=== PATIENT | female | born 1965 | race Caucasian/White ===

== ENCOUNTER 2024-08-05 15:20 | Outpatient (CLI) | payer OTHER, SELFPAY ==
--- NOTE | 2024-08-05 15:30 | ECG_ITS ---
Test Date: 2024-08-05 15:46:50 Measurements Intervals [place] Rate: 66 P: 70 OK: 133 QRS: 57 QRSD: 89 T: 46 QT: 393 QTc: 413 Interpretive Statements SINUS RHYTHM NORMAL ECG No previous ECG available for comparison Electronically Signed On 08-05-2024 16:13:46 CDT by Jimmie Lopez D.O.
--- OUTSIDE RECORDS SUMMARY | 2024-08-05 16:22 | XMS_ITS | Data Portability ---
Author Organization [facility] SI (11) Address [address] [place] [id number] Care Team Providers Care Showcase Trimmer Name Role Phone MONIQUE LUTHER Referring Provider [phone] Assessment No assessment recorded. Plan of Treatment Reminders Order Date Submit Date Provider Last Modified By Organization Details Last Modified Time Details Appointments None record ed. Lab None record ed. Referral None record ed. Procedures None record ed. Surgeries None record ed. Imaging None record ed. Medication Orders None record ed. Patient TargetsNo targets recorded. Patient InstructionsNo instructions recorded. Reason for Referral None Reported. Procedures Surgical History Date Name Laterality Status Provider Name and Address Organization Details Recorded Time 09/18/2016 Sleep Study completed Byron Reyes MD, F.C.C.P. [address] [place] [address], [place], [address], [facility]/[facility] 09/20/2016 07:59:58 Imaging Results None recorded. Procedure Notes None recorded. Medical Equipment None Reported. Medications Name Sig Start Date Stop Date Status Note LastModified by Organization Details LastModified Time venlafaxine ER 37.5 mg capsule,extende d release 24 hr Take 1 capsule every day by oral route. active Not Available Not Available No t Available venlafaxine ER 75 mg capsule,extende d release 24 hr active Not Available Not Availa ble Not Available venlafaxine 75 mg tablet Take 1 tablet every day by oral route. active Not Available Not Available No t Available azithromycin 250 mg tablet active Not Available Not Availabl e Not Available fluconazole 150 mg tablet active Not Available Not Available No t Available valacyclovir 1 gram tablet active Not Available Not Available Not Available amlodipine 5 mg tablet active Not Available Not Available Not Available diltiazem CD 120 mg capsule,extende d release 24 hr Take 1 capsule every day by oral route. active Not Available Not Available No t Available Longs Adult Low Strength ASA 81 mg tablet,delayed release Take 1 tablet every day by oral route. active Not Available Not Available No t Available hydrochlorothia zide 25 mg tablet active Not Available Not Available Not Available Edarbyclor 40 mg-12.5 mg tablet Take 1 tablet every day by oral route. active Not Available Not Available No t Available Belviq 10 mg tablet active Not Available Not Available Not Available Vitals Date Recorded Body height Body mass index (BMI) Body weight Provider Name and Address Organization Details Last Updated DateTime 09/18/2016 154.94 cm 36.1 kg/m2 41096.14 g [place] [facility] 09/19/2016 17:31:48 Social History None recorded. Functional Status None recorded. Mental Status None recorded. Family History Nothing Reported. Medical History No medical history recorded. Gynecological HistoryNo gynecological history recorded. Obstetrics History GPAL:G 0 P 0 0 0 0 Past Encounters Encounter ID Performer Location Encounter Start Date Encounter Closed Date Diagnosis/Indication Diagnosis SNOMED-CT Code Diagnosis ICD10 Code Diagnosis Note [id number] [facility] [place], [facility] [phone] [place] [address] 09/18/2016 21:42:45 09/19/2016 17:23:19 Obstructive sleep apnea of adult 3778734117 103 G47.33 Health Concerns Section Related Observation LastModified by Organization Detai ls LastModified Time None Recorded Concern Status LastModified by Organization Details LastModified Time None Recorded Advance Directives Directive None Recorded Payers Insurance Date Sequence Insurance Name Policy Number Policy [place] Covered Member ID [place] Member ID Guarantor Name 09/18/2016 1 [place] Kwame Taylor [id number] Shadia Hartry OBGyn Episode No OBEpisode recorded.
--- OUTSIDE RECORDS SUMMARY | 2024-08-05 16:22 | XMS_ITS | Data Portability ---
Author Organization [facility] [employer] , [facility] Address [address] [place] [address] Assessment No assessment recorded. Plan of Treatment Reminders Order Date Submit Date Provider Last Modified By Organization Details Last Modified Time Details Appointments None recorded. Lab HPV E6+E7 mRNA, qualitative PCR, cervix 2022 023 [facility], [address] [place] [address], [address], 3 15:58:00 pap, LB 2022 023 [facility], [address] [place], [address], 3 15:31:59 Referral None recorded. Procedures None recorded. Surgeries None recorded. Imaging MAMMO, screening, digital, bilateral 2022 023 [email or web address] Not available 3 16:33:58 Medication Orders None recorded. Patient TargetsNo targets recorded. Patient Instructions Encounter Date Encounter Id Patient Instructions Last Modified By Organization Details Last Modified Time 03/04/2022 [id number] abuse/domestic violence education Not available 03/04/2022 17:39:13 eating healthy foods: care instructions Not available 03/04/2022 17:39:13 general health care education Not available 03/04/2022 17:39:13 weight managemen t education Not available 03/04/2022 17:39:13 Reason for Referral None Reported. Results Created Date Observation Date Name Description Value Unit Range Abnormal Flag Note LastModifiedBy Organization Detail LastModifiedTime 03/04/19 23 03/07/2022 HPV HIGH RISK HPV high risk Negati ve negati ve normal The HPV High Risk assay is inten ded for use as co-te sting with cytol ogy and not as a subst itute for regul ar cervi javon cytol ogy scree laura. This assay is not inten ded for use as a scree laura devic e for women under age 30 with glendy l cervi javon cytol ogy. Not Available [facility] [address] [place], [address], 03/07/2022 15:58:00 03/04/19 23 03/08/2022 THINP REP TIS PAP clinical information: normal None given Not Available [address], [address], 03/08/2022 15:31:59 03/04/19 23 03/08/2022 THINP REP TIS PAP LMP: normal NONE GIVEN Not Available [address], [address], 03/08/2022 15:31:59 03/04/19 23 03/08/2022 THINP REP TIS PAP prev. Pap: normal NONE GIVEN Not Available [address], [address], 03/08/2022 15:31:59 03/04/19 23 03/08/2022 THINP REP TIS PAP prev. BX: normal NONE GIVEN Not Available [address], [address], 03/08/2022 15:31:59 03/04/19 23 03/08/2022 THINP REP TIS PAP source: normal Cervi x Not Available [address], [address], 03/08/2022 15:31:59 03/04/19 23 03/08/2022 THINP REP TIS PAP statement of adequacy: normal Satis facto ry for evalu ation . Endoc ervic al/tr ansfo rmati on zone compo nent prese nt. Age and/o r menst rual statu s not provi ded Not Available [address] [address] [place], [address], 03/08/2022 15:31:59 03/04/19 23 03/08/2022 THINP REP TIS PAP interpretati on/result: normal Negat shira for intra epith elial lesio n or malig kylie . Not Available [address] [address] [place], [address], 03/08/2022 15:31:59 03/04/19 23 03/08/2022 THINP REP TIS PAP comment: normal This Pap test has been evalu ated with compu ter fernando virgil [employer] ology . Not Available [address] [address] [place], [address], 03/08/2022 15:31:59 03/04/19 23 03/08/2022 THINP REP TIS PAP cytotechnolo gist: normal MDG, CT( CP) CT scree laura locat ion: [address] [address] [place] [address] Not Available [address] [address] [place], [address], 03/08/2022 15:31:59 03/04/19 23 03/08/2022 THINP REP TIS PAP comment EXPLA NATOR Y NOTE: The Pap is a scree laura test for cervi javon cance r. It is not a diagn ostic test and is subje ct to false negat shira and false posit shira resul ts. It is most relia ble when a satis facto ry sampl e, regul oksana obtai tiffanie, is submi tted with relev ant clini javon findi ngs and histo ry, and when the Pap resul t is evalu ated along with histo frances and curre nt clini javon infor matio n. Not Available [address] [address] [place], [address], 03/08/2022 15:31:59 Result Notes None recorded. Problems No Known Problems Procedures Surgical History Date Name Laterality Status Provider Name and Address Organization Details Recorded Time 12/17/19 21 Most Recent Mammogram completed [facility] 03/04/2022 15:23:59 12/17/19 20 Date of Last Pap Smear completed [facility] 03/04/2022 15:23:59 Breast Augmentation completed [facility] 03/04/2022 15:24:16 Breast Reduction completed [facility] 03/04/2022 15:24:16 Endometrial Ablation completed [facility] 03/04/2022 15:24:16 Imaging Results None recorded. Procedure Notes None recorded. Medical Equipment None Reported. Allergies Allergen ID Allergen Name Allergen Category Reaction Reaction Severity Criticality Documentation Date Start Date Code Code System Note Provider Name and Address Organization Details Recorded Time 086387 ciproflox acin medicatio n Not available Not available Not available 03/04/2022 2551 [facility] 15:23:38 Medications Name Sig Start Date Stop Date Status Note LastModified by Organization Details LastModified Time venlafaxine ER 37.5 mg capsule,ext ended release 24 hr TAKE 1 CAPSULE BY MOUTH EVERY DAY EXCEPT DURING MENSTRUL CYCLE TAKE TWICE DAILY 03/04 completed Not Available Not Available Not Available venlafaxine ER 75 mg capsule,ext ended release 24 hr TAKE 1 CAPSULE BY MOUTH EVERY DAY active Not Available Not Available No t Available clindamycin HCl 300 mg capsule TAKE 1 (ONE) CAPSULE THREE TIMES DAILY WITH FOOD 03/04 completed Not Available Not Available Not Available fluconazole 150 mg tablet TAKE 1 (ONE) TABLET ONCE, MAY REPEAT IN 3 DAYS IF SYMPTOMS PERSIST 03/04 completed Not Available Not Available Not Available valacyclovi r 1 gram tablet TAKE 1 TABLET BY MOUTH TWICE A DAY NEEDED active Not Available Not Available No t Available hydrocodone 5 mg-acetamin ophen 325 mg tablet 1 OR 2 TABLETS BY MOUTH EVERY 6 HOURS NEEDED FOR PAIN active Not Available Not Available No t Available prednisone 20 mg tablet TAKE 1 TABLET BY MOUTH TWICE A DAY active Not Available Not Available No t Available valsartan 80 mg tablet TAKE 1 TABLET BY MOUTH EVERY DAY active Not Available Not Available No t Available phentermine 37.5 mg tablet TAKE 1 TABLET BY MOUTH EVERY DAY active Not Available Not Available No t Available amoxicillin 875 mg tablet TAKE 1 TABLET BY MOUTH TWICE A DAY WITH FOOD 03/04 completed Not Available Not Available Not Available prednisolon e acetate 1 % eye drops,suspe nsion INSTILL 1 DROP IN SURGICAL EYE 4 TIMES A DAY active Not Available Not Available No t Available gentamicin 0.3 % eye drops INSTILL 1 DROP IN RIGHT EYE FOUR TIMES A DAY active Not Available Not Available No t Available ergocalcife rol (vitamin D2) 1,250 mcg (50,000 unit) capsule TAKE 1 CAPSULE BY MOUTH ONE TIME PER WEEK active Not Available Not Available No t Available ondansetron 4 mg disintegrat ing tablet DISSOLVE 1 TABLET ON TONGUE EVERY 4 TO 6 HOURS NEEDED FOR NAUSEA active Not Available Not Available No t Available phentermine 37.5 mg capsule TAKE 1 CAPSULE BY MOUTH DAILY 03/04 completed Not Available Not Available Not Available DILT-XR 120 mg capsule, extended release TAKE 1 CAPSULE BY MOUTH EVERY DAY active Not Available Not Available No t Available Trulicity 1.5 mg/0.5 mL subcutaneou s pen injector INJECT 1.5 MG SUBCUTANE OUSLY WEEKLY active Not Available Not Available No t Available Trulicity 0.75 mg/0.5 mL subcutaneou s pen injector INJECT 0.75 MG SUBCUTANE OUSLY WEEKLY 03/04 completed Not Available Not Available Not Available Vitals Date Recorded Body weight Systolic blood pressure Diastolic blood pressure Provider Name and Address Organization Details Last Updated DateTime 03/04/2022 52444.59 g 148 mm[Hg] 84 mm[Hg] Taylor Zhuer [facility] 03/04/2022 15:37:36 Social History Question Answer Notes LastModified by Organizat ion Details LastModified Time Tobacco Smoking Status Never Smoker Taylor Jase antunez [facility] 03/04/2022 15:24:10 How Many Years Have You Consumed Alcohol? 32 [email or web address] Information not available 03/04/2022 What Is Your Relationship Status? [email or web address] Information not available 03/04/2022 Are You Sexually Active? Yes [email or web address] Information not available 03/04/2022 Sex: Unknown Functional Status Question Answer Note LastModified by Organizat ion Details LastModified Time What is your level of alcohol consumption? Occasional [email or web address] Information not available 03/04/2022 Do you or have you ever used e-cigarettes or vape? Never used electronic cigarettes [email or web address] Information not available 03/04/2022 What is your exercise level? Occasional [email or web address] Information not available 03/04/2022 Mental Status None recorded. Family History Relationship Description Onset Age of this Age Resolved Age Notes LastModified by Organization Details LastModified Time Father Hypertensive disorder [email or web address] Not available 03/04 15:23:45 Father Malignant neoplastic disease [email or web address] Not available 03/04 15:23:45 Mother Depressive disorder [email or web address] Not available 03/04 15:23:45 Mother Hypertensive disorder [email or web address] Not available 03/04 15:23:45 Medical History Condition Response High Blood Pressure Y Gynecological History Statement/Question Response Flow Heavy Frequency of Cycle (Q days) 26 Date of LMP 09/04/2009 Date of Last Pap Smear 12/17/2019 Duration of Flow (days) 5 Most Recent Mammogram 12/16/2020 Current Control Method Ablation Age at Menarche 17 Obstetrics History GPAL:G 0 P 0 0 0 0 Past Encounters Encounter ID Performer Location Encounter Start Date Encounter Closed Date Diagnosis/Indication Diagnosis SNOMED-CT Code Diagnosis ICD10 Code Diagnosis Note [id number] Maggie Chaney MD [facility] [address] [place] [address] 03/04/2022 14:59:46 03/09/2022 09:05:00 Gynecologic examination 52568449 Z01.419 56y.o. here for annual exam. - Pap up to date from 2019, discussed natural course of HPV infection, no new exposures. Plan to repeat cotesting in years. - Routine labs done with PCP - Mammo 2020 WNL, discussed different guideline recommenda zack, pt without family hx, would like to proceed with q1yr screening, repeat next year // rx provided - ?stool guaic done, can continue per PCP orders who manages - DEXA at age 67 - BMI counseling , diet and exercise reviewed - RTO for annual or PRN Screening for malignant neoplasm of cervix 264222870 Z12.4 Screening for malignant neoplasm of breast 397549995 Z12.39 Health Concerns Section Related Observation LastModified by Organization Detai ls LastModified Time None Recorded Concern Status LastModified by Organization Details LastModified Time None Recorded Advance Directives Directive None Recorded Payers Insurance Date Sequence Insurance Name Policy Number Policy [place] Covered Member ID [place] Member ID Guarantor Name 03/25/2022 1 [place] Shadia Hartry [id number] Shadia Taylor 03/25/2022 1 [facility] - DOS ON OR AFTER 20 (MEDICAID REPLACEMENT - HMO) Shadia Taylor [id number] Shadia Taylor Notes Date Note Type Note Provider Name a nd Address Organization Details Recorded Time 03/04/2022 text/html Annual GYNReport ed bypatient.Menstrua l cycle:menopausal Urinary symptoms:No hematuria; No incontinence Vulva:No genital lesion Vagina:Normal vaginal discharge Breast:No breast pain; No breast lump Current Contraception:Sati sfied with current contraception; Monogamous relationship Sexual complaints:No sexual complaints Menopausal Symptoms:Hot flashes Psychological symptoms:Depressio n;Anxiety Preventive measures:Encourage self breast examination; Encourage regular exercise; Encourage no tobacco use; Encourage regular mammograms starting age 40; Followed with Q3 year pap smear and high risk HPV typing Didier Chaney MD [address] [facility], [place], [address], [facility] [employer] [facility] 03/04/2022 15:54:03 OBGyn Episode No OBEpisode recorded.
--- OUTSIDE RECORDS SUMMARY | 2024-08-05 16:22 | XMS_ITS | Clinical Summary ---
Author Organization [facility] Address [address] [place] [address] Care Team Providers Care Lubricating Engineer Name Role Phone Li Smith RODNEY Primary Care Provider [phone] Social History Tobacco Use Types Packs/Day Years Used Date Smoking Tobacco: Never Assessed Comments No Sex and Gender Information Value Date Recorded Sex Assigned at Not on file Legal Sex Female 9:10 PM CDT Gender Identity Not on file Sexual Orientation Not on file Last Filed Vital Signs Vital Sign Reading Time Taken Comments Blood Pressure 114/52 04/04/2014 2:37 PM [facility] [employer] [employer] Pulse 85 04/04/2014 2:37 PM [facility] Temperature 36.6 C (97.9 F) 04/04/2014 2:37 PM [facility] Respiratory Rate 18 04/04/2014 2:37 PM [facility] Oxygen Saturation 98% 04/04/2014 2:37 PM [employer] Inhaled Oxygen Concentration - - Weight 86.2 kg (190 lb) 11/05/2020 4:05 PM CDT Height 165.1 cm (5' 5) 11/05/2020 4:05 PM CDT Body Mass Index 31.62 11/05/2020 4:05 PM CDT Plan of Treatment Upcoming Encounters Date Type Department Care Team (Late st Contact Info) Description 09/06/2024 9:15 AM CDT Office Visit [facility] [address] [place] [phone] Eliane Acosta MD [address] [place] [address] [phone] (work) Health Maintenance Due Date Last Done Comments CT Colonography 1967 Colonoscopy 1967 Colorectal Cancer Screening 1967 FIT-DNA 1967 FIT 1967 FOBT 1967 Pap Smear 1967 Sigmoidoscopy 1967 MMR Vaccines (1 of 1 - Standard series) 05/09/1968 Varicella Vaccines (1 of 2 - 13+ 2-dose series) 05/09/1980 Hepatitis B Vaccines (1 of 3 - 19+ 3-dose series) 05/09/1986 DTaP,Tdap,and Td Vaccines (1 - Tdap) 05/09/1988 AMB Pneumococcal 50+ yrs (1 of 1 - PCV) 05/09/2017 Zoster Series Vaccines (1 of 2) 05/09/2017 Mammogram 11/05/2021 11/05/2020, 03/30, 04/25/2016, Additional history exists COVID-19 Vaccine (2023- season) 2023 Influenza Vaccine (Season Ended) 2024 RSV Vaccines and 60 Years or Older (1 - 1-dose 75+ series) 05/09/2042 HIB Vaccines Aged Out No longer eligi ble based on patient's age to complete this topic HPV Vaccines Aged Out No longer eligi ble based on patient's age to complete this topic Hepatitis A Vaccines Aged Out No long er eligible based on patient's age to complete this topic IPV Vaccines Aged Out No longer eligi ble based on patient's age to complete this topic Meningococcal ACWY Vaccine Aged Out N o longer eligible based on patient's age to complete this topic Meningococcal B Vaccine Aged Out No l onger eligible based on patient's age to complete this topic RSV Vaccines <20 Months Aged Out No l onger eligible based on patient's age to complete this topic Medical Devices Implanted Type Area Vehicle Assembler Device Identifier Shelf Expiration Date Model / Serial / Lot Breast Breast Bilateral: Breast Procedures Procedure Name Priority Date/Time Associated Diagnosis Comments BI SCREENING BILATERAL Routine 11/05/2020 4:05 PM CDT Encounter for screening mammogram for malignant neoplasm of breast from Last 3 Months or Most Recently Relevant to Health Maintenance Results * Bilateral digital screening mammogram (11/05/2020 4:05 PM CDT) Anatomical Region Laterality Modality Breast Bilateral Mammography Narrative 11/05/2020 4:16 PM CDT EXAMINATION(S) PERFORMED Patient is seen for Bilateral digital screening mammogram. Study was evaluated with a computer aided detection (CAD) system and performed with 2D/3D mammography. INDICATIONS Shadia Taylor is a 55 y.o. female and is being seen for Encounter for screening mammogram for malignant neoplasm of breast. No known family history of breast cancer. COMPARISON TO PREVIOUS EXAMINATION(S) Compared to: 04/16/2018 Bilateral digital screening mammogram and 04/25/2016 Breast Img screening bilateral FINDINGS The breasts are heterogeneously dense, which may obscure small masses. There is no evidence of suspicious masses, calcifications, or other abnormal findings. The patient has bilateral subpectoral saline breast implants. There has been no interval change. IMPRESSION Right breast assessment: Benign. Left breast assessment: Benign. Routine Screening Mammogram in 1 Yr is recommended for both breasts. Overall BI-RADS category: 2 - Benign Li Smith [employer] AIDE IMG BI PROCEDURES Final Result from Last 3 Months or Most Recently Relevant to Health Maintenance Insurance [employer] Care Teams Lubricating Engineer Relationship Specialty Start Date End Date Li Smith FNP [address] [place] [phone] (Work) PCP - General Nurse Practitioner Family 04/16/18
== END 2024-08-05 15:21 | disposition home or self-care (01) ==
LOC: ANHSURGERY 15:27
PROVIDERS: Visit Provider Surgery Plastic and Reconstructive Surgery
DX: Z01.818 Encounter for other preprocedural examination (principal); I10 Essential (primary) hypertension
CPT/HCPCS: 93005

== ENCOUNTER 2024-08-06 01:21 | Day surgery (SDC) | payer OTHER, SELFPAY ==
[2024-07-30 13:14] VITALS: BMI 21.2
--- NOTE | 2024-07-30 13:22 | PC.NURSE ---
Report to the Outpatient Waiting Room, entrance under the green pavilion located off [facility], at time _1030_ on date _[id number]_. Planned Procedure Time: _1230_.? Time changes happen often and if your time is changed the preop area will call you the afternoon before. - You and your visitor will be asked to self-screen and do not enter if you have any COVID symptoms. Please call surgeon if you need to reschedule. - A mask is optional within the hospital at this time. Patients may have clear liquids (water, carbonated beverages, clear teas, apple juice) until 3 hours prior to surgery with a maximum of 20 ounces. - No food from midnight until time of surgery and no smoking, or chewing tobacco (or any form of nicotine). No chewing gum, candy or mints. Take only the following medications with a SIP of water on the morning of surgery: ___Diltiazem and Venlafaxine.____ DO NOT STOP ANY OF YOUR OTHER PRESCRIPTION MEDICATIONS PRIOR TO SURGERY EXCEPT THE FOLLOWING Hold all vitamins and supplements for 3 days per anesthesiologist. Medications to discontinue per physician Date to take last eaec___[id number]___ Please no make-up, nail tamazight, hairspray, perfume, deodorant, or body powder the day of surgery.? No jewelry (including any body piercings) or valuables the day of surgery, leave them at home.? Please take a shower or bath the night before, or the morning of, surgery with an antibacterial soap.? Wear comfortable, loose fitting clothing.? - Jewelry must be removed prior to entering the operating room.? Rings and piercings that are not removed may be cut off. - The hospital will not accept responsibility for valuables.? - Please leave all valuables, including medications, at home the day of surgery. If you are going home after surgery, a licensed newspaper delivery driver must drive you home.? - NO public transportation without another adult if you receive anesthesia. - We recommend that an adult stay with you for 24 hours following discharge. - We also recommend that you do not drive, make important decision, drink alcoholic beverages, or take any drugs that were not prescribed by your health care provider for at least 24 hours after your discharge time. Follow any additional instructions given to you from your surgeon. Telephone instructions given to __Shadia___and asked if any additional questions and then verbalized understanding. Patient advised to call surgeon office or pre surgery nurse liaison [phone] if any additional questions.
[2024-08-06] VITALS (10 sets, daily range): BP systolic 112–135; BP diastolic 55–77; PULSE 70–102; RESP 12–16; TEMP 36.3–36.9; O2SAT 94–100
--- OUTSIDE RECORDS SUMMARY | 2024-08-06 01:24 | XMS_ITS | Clinical Summary ---
Author Organization [facility] Address [address] [place] [address] Care Team Providers Care Grease Packer Name Role Phone Li Smith RODNEY Primary Care Provider [phone] Social History Tobacco Use Types Packs/Day Years Used Date Smoking Tobacco: Never Assessed Comments No Sex and Gender Information Value Date Recorded Sex Assigned at Not on file Legal Sex Female 9:10 PM CDT Gender Identity Not on file Sexual Orientation Not on file Last Filed Vital Signs Vital Sign Reading Time Taken Comments Blood Pressure 114/52 04/04/2014 2:37 PM WIGS SALESPERSON Pulse 85 04/04/2014 2:37 PM WIGS SALESPERSON Temperature 36.6 C (97.9 F) 04/04/2014 2:37 PM WIGS SALESPERSON Respiratory Rate 18 04/04/2014 2:37 PM WIGS SALESPERSON Oxygen Saturation 98% 04/04/2014 2:37 PM WIGS SALESPERSON Inhaled Oxygen Concentration - - Weight 86.2 kg (190 lb) 11/05/2020 4:05 PM CDT Height 165.1 cm (5' 5) 11/05/2020 4:05 PM CDT Body Mass Index 31.62 11/05/2020 4:05 PM CDT Plan of Treatment Upcoming Encounters Date Type Department Care Team (Late st Contact Info) Description 09/06/2024 9:15 AM CDT [facility] [address] [place] [id number] Eliane Acosta MD [address] [place] [address] [phone] (work) Health Maintenance Due Date Last Done [...] this topic Medical Devices Implanted Type Area Restaurant Mgr Device Identifier Shelf Expiration Date Model / [...] BI-RADS category: 2 - Benign Li Smith PARTS INSPECTOR IMG BI PROCEDURES Final Result from Last 3 Months or Most Recently Relevant to Health Maintenance Insurance Enjoyor Care Teams Grease Packer Relationship Specialty Start Date End Date Li Smith FNP [address] [place] [phone] (Work) PCP - General Nurse Practitioner Family 04/16/18
[2024-08-06] MEDS: LACTATED RINGERS 1,000 ML 30 ML IV CONT ×2 (09:45→13:17)
--- NOTE | 2024-08-06 09:50 | WPDHPUPDATE1 ---
History and Physical Update Update Date/Time: 08/06/24 09:50 History and Physical has been reviewed, including an updated exam of the patient. There are NO changes in the patient's condition. Risks, benefits, and alternatives have been discussed and questions answered. Patient agrees to proceed with procedure.
--- NOTE | 2024-08-06 09:50 | W.PM.PROC2 ---
Procedure Note - Detailed Date of Procedure 08/06/24 Pre-op Diagnosis hx of breast augmentation, breast ptosis Post-op Diagnosis Same Procedure Performed Bilateral breast implant exchange with mastopexy and Galaflex Surgeon Hunter Hernandez MD Anesthesia General Findings Inverted T Superior medial pedicle Previous implants: Intact Saline Smooth New implants: Natrelle Saline 465cc filled to 505 cc Right: REF# [id number] SN [id number] Left: REF# [id number] SN [id number] Galaflex: Ref# [id number]# [id number] Description of Procedure She is here today for the above. Previously and again today the risks, benefits, alternatives were discussed in extensive detail. I wanted her to be very realistic about the risks involved as well as expectations. We discussed aftercare and what to monitor for. Made sure answered all of her questions to her satisfaction today and consent was obtained. Marked in the preoperative holding area with their verification. The patient was taken to the operating room placed supine on the operating table. Anesthesia was provided by anesthesiology. A surgical time-out was taken. We cleansed the skin and 1% lidocaine and 0.25% Marcaine with epinephrine was used anesthetize as a field block. She was prepped and draped in a standard sterile fashion. Tegaderm nipple Dash were placed. A 15 blade used to make an incision just superior to the inframammary fold leaving a cusp of de-epithelized tissue at the t junction. Dissection was continued until the chest wall as identified. I identified the pocket and implant removed. Copiously irrigated with saline solution on TUR tubing. Capsulotomy and Capsulorraphy was completed as appropriate. Again, I copiously irrigated with saline solution and verified a strict hemostasis. Next the use a triple antibiotic and Betadine containing solution to irrigate the pocket. I washed my gloves with the triple antibiotic and Betadine solution. We washed the implant immediately upon opening it with this solution and only opened it when we needed it. On the back table I prepped the implant to remove all air. It was introduced into the pocket and utilizing an implant fill kit filled to the volume above. The fill tubing was removed and I verified the valve sealed. Having verified positioning of the implant this was closed using 2-0 PDS. I tailor tacked the breast into position. Placed her in a sitting position. Verified the nipple-areolar location based on preoperative planning as well as intraoperative observations and measurements in full agreement. She was placed supine. I de-epithelialized the pedicle. I then removed the inferior central portion of the breast need making sure the implant was well protected. I elevated medial and lateral tissue flaps as well for planned closure. Galaflex was soaking on the back table in a betadine solution. Trimmed and sutured into place with 2-0 Vicryl. I closed along the IMF with 2-0 Stratafix. Along the vertical with 2-0 PDS. I closed around the areola with 3-0 strata fix. 3-0 Monocryl along the vertical. 3-0 Stratafix along the IMF. I finally closed everything with running subcuticular 4-0 Monocryl and tissue glue as well as Brijjits. Fluffs and surgical bra were placed. Estimated Blood Loss 50 Drains No Packing No Pathology None sent Complications No immediate complications Condition Stable Disposition PACU
[2024-08-06] MEDS: SCOPOLAMINE 1 MG PATCH 1 PATCH TRANSDERM (10:12)
--- NOTE | 2024-08-06 10:13 | P.PNAN_ITS ---
Anes - Initial Pre Proc Eval Procedure: Operation Date: 08/06/24 12:30 Proposed Procedures p Bilateral Breast Mastopexy, - Hunter Hernandez MD s Bilateral Breast Implant Exchange - Hunter Hernandez MD Date/Time: 08/06/24 10:13 Surgeon: Hutner Hernandez MD Pre Op Diagnosis: hx of breast augmentation, breast ptosis Patient Data Age: 59 Gender: F Height: 1.57 m Weight: 52.7 kg Allergies Allergy/AdvReac Type Severity Reaction Status Date / Time ciprofloxacin (From Cipro) Allergy Intermediate Rash Verified 08/06/24 10:10 Home Medications ?Medication ?Instructions ?Recorded ?Confirmed ?Type diltiazem HCl 120 mg capsule,24 120 mg PO DAILY 07/30/24 08/06/24 History hr,extended release estradiol 1 mg tablet (Estrace) 1 mg PO DAILY 07/30/24 07/30/24 History inulin 2 gram chewable tablet 2 g PO DAILY 07/30/24 07/30/24 History (Duff' Fiber Good) lactobacillus combo no.11 15 1 cap PO DAILY 07/30/24 07/30/24 History billion cell sprinkle capsule (Probiotic) valacyclovir 1 gram tablet 1,000 mg PO TID PRN cold sores 07/30/24 07/30/24 History valsartan 80 mg tablet 80 mg PO DAILY 07/30/24 07/30/24 History venlafaxine 37.5 mg 37.5 mg PO DAILY 07/30/24 08/06/24 History capsule,extended release 24 hr venlafaxine 75 mg capsule,extended 75 mg PO DAILY 07/30/24 08/06/24 History release 24 hr Laboratory Tests 08/06/24 09:37 Cotinine Pending Patient hx anesthesia problems: none Family hx anesthesia problems: none Results Review: All pre-operative results and documents have been reviewed as part of the pre- operative evaluation. [facility] Social History Social History Smoking status: Never smoker Alcohol intake: current Drinks per week: 5 Living arrangements: with family Spiritual care concerns: No Anes - Eval Final PreProcedure Day of Procedure 08/06/24 10:13 Patient weight: normal Heart: regular rate and rhythm Lungs: clear to auscultation Airway: Mallampati scale Neurological: alert and oriented Last oral intake: >/= 8 hours ASA classification: II Emergent: no Anesthetic plan: proceed Anesthesia type and monitoring: general LMA and standard monitoring Results Review: All pre-operative results and documents have been reviewed as part of the pre- operative evaluation. Informed Consent: The patient's anesthetic plan and its attendant risks and benefits were discussed with the patient/family/POA. Questions were solicited and answers provided to the satisfaction of the patient/family/POA.
[2024-08-06] MEDS: TRANEXAMIC ACID 1,000MG/ISO100 1,000 MG/100 ML BAG 200 MG IVPB (10:23)
[2024-08-06 10:24] LABS: BEDSIDEPREGUCG Negative (Negative)
[2024-08-06] MEDS: ceFAZolin 2 GM/D5W 50 ML 2 GM/50 ML BAG IVPB (10:24)
[2024-08-06] MEDS: NACL 0.9% IRRIG POUR BOTTLE 900 ML, GENTAMICIN SULFATE INJ 160 MG, ceFAZolin 2 GM, POVI... IRRIGATION (10:24)
[2024-08-06] MEDS: LIDO 1%/EPINEPHRINE 1:100,000 20 ML VIAL 30 ML INFILTRATE (10:24)
[2024-08-06] MEDS: BUPivacaine HCL 0.25% PF 30 ML VIAL INFILTRATE (10:24)
[2024-08-06 10:34] LABS: Urine Cotinine NEGATIVE
[2024-08-06] MEDS: fentaNYL CITRATE INJ (*CRX) 100 MCG/2 ML VIAL 25 MCG IV PUSH ×4 (13:26→14:00)
[2024-08-06] MEDS: oxyCODONE HCL (*CRX) 5 MG TAB IR PO (14:46)
--- NOTE | 2024-08-06 15:48 | SUR.PHASEII ---
Patient is getting dressed. Vitals are stable.
== END 2024-08-06 15:55 | disposition home or self-care (01) ==
PROVIDERS: Visit Provider Surgery Plastic and Reconstructive Surgery
PROC: (CPT 19316; principal; 2024-08-06 12:30)
PROC: (CPT 19370; 2024-08-06 12:30)
DX: Z41.1 Encounter for cosmetic surgery (principal); N64.81 Ptosis of breast
CPT/HCPCS: 19370; 19325; 19316; 15777 ×2; 80307; A9270; J0171; J0690; J1100; J1580; J2003; J2004; J2250; J2371; J2405; J2704; J3010; J7030; J7120